=== PATIENT | female | born 1995 | race Caucasian/White ===

== ENCOUNTER 2018-03-18 19:23 | Emergency (ER) | payer OTHER ==
--- NOTE | 2018-03-18 19:47 | EDPHY ---
H & P Source: Patient Exam Limitations: No limitations - Personal History Current Tetanus/Diphtheria Vaccine: Yes Current Tetanus Diphtheria and Acellular Pertussis (TDAP): Yes Time Seen by Provider: 03/18/18 19:47 HPI/ROS: HPI: This is a 22-year-old female who presents with Chief Complaint: Left thumb nail avulsion Location: Left thumb Quality: Nail avulsion Duration: Prior to arrival Signs and Symptoms: + bleeding, no radiation, no numbness, no weakness, no tingling, no incontinence, no decreased range of motion, no swelling, + pain, no fever Timing: Acute Severity: Moderate 5/10 Context: Patient is of [facility] employee presents from the OR with accidentally cutting part of her nail of her left thumb on a scalpel prior to arrival. She reports that she felt immediate pain that was constant and nonradiating in nature. Patient was gloved at the time and noted that she was bleeding. She removed her glove and noted that there was a moderate amount of bleeding that she could not stop with direct pressure. Reports tetanus up-to- date. Denies any paresthesias/weakness/decreased range of motion. Modifying Factors: Comment: ROS: see HPI Constitutional: No fever, no chills, no weight loss Eyes: No blurred vision Respiratory: No shortness of breath, no cough Cardiovascular: No chest pain Gastrointestinal: No nausea, no vomiting no diarrhea Genitourinary: No dysuria Extremities: No myalgias Neurologic: No weakness, no numbness Skin: No rashes Hematologic: No bruising, no bleeding MEDICAL/SURGICAL/SOCIAL HISTORY: Medical history: Generally healthy. Does not take any regular medications. Surgical history: Denies Social history: Employed. CONSTITUTIONAL: awake and alert, no obvious distress HEENT: Atraumatic and normocephalic. EXTREMITIES: 2/2 pulses, strength 5/5, left thumb shows 1/4 partial nail avulsion of the lateral portion; + active bleeding of nail bed. DIP/PIP/MCP flexion/extension intact with good light touch sensation. no deformities, no clubbing, no cyanosis or edema. NEUROLOGICAL: no focal neuro deficits. GCS 15. Light touch sensation intact. SKIN: Warm and dry, no erythema. no rash. Good capillary refill. (SesarTerra) Constitutional: Initial Vital Signs Heart Rate 71 03/18/18 20:29 Blood Pressure 113/84 H 03/18/18 20:29 O2 Sat (%) 98 03/18/18 20:29 O2 Delivery Mode Room Air Medical Decision Making ED Course/Re-evaluation: Vital signs reviewed and stable upon arrival. Tetanus up-to-date no indication for xray imaging. tourniquet placed on finger, digital block using lidocaine without epinephrine performed for pain control, silver nitrate stick x1 used to achieve hemostasis, Xeroform placed into nail fold and clean sterile dressing applied. Verbal and written wound care instructions provided. No signs of neurovascular compromise/tenting of skin/compartment syndrome/ extremities and joints examined above and below area of concern and are neurovascularly intact/open fracture/nail bed laceration. This patient was seen under the supervision of my secondary supervising physician. I evaluated care for this patient independently. (Nithya Kaba) Differential Diagnosis: Differential diagnosis includes but is not limited to nail avulsion, finger fracture, nail matrix injury, partial amputation. (Nithya Kaba) Other Provider: PHYSICIAN DOCUMENTATION: The patient was evaluated and managed by the Physician Custodial Foreman. My co- signature indicates that I have reviewed this chart and I agree with the findings and plan of care as documented. I am the secondary supervising physician. (Terence Garcia) - Data Points Medications Given: Discontinued Medications Ibuprofen (Motrin) 600 mg PO EDNOW ONE Stop: 03/18/18 19:59 Last Admin: 03/18/18 20:03 Dose: 600 mg Silver Nitrate/Potassium Nitrate (Silver Nitrate Applicator) 1 each TP EDNOW ONE Stop: 03/18/18 19:59 Last Admin: 03/18/18 20:03 Dose: 1 each Departure - Departure Disposition: Home, Routine, Self-Care Clinical Impression: Nail avulsion, finger Qualifiers: Encounter type: initial encounter Qualified Code(s): S61.309A - Unspecified open wound of unspecified finger with damage to nail, initial encounter Injury of nail bed of finger of left hand Qualifiers: Encounter type: initial encounter Qualified Code(s): S69.92XA - Unspecified injury of left wrist, hand and finger(s), initial encounter Condition: Good Instructions: Nail Avulsion (ED) Additional Instructions: Keep the dressing dry and in place for 48 hours. After 48 hours, you may remove the dressing; wash the site daily with mild soap and water; then pat dry; apply Xeroform into nail fold; and then cover with clean sterile dressing. Take Tylenol 650 mg every 4 hours and/or Ibuprofen 600 mg every 8 hours with food as needed for pain. Apply ice for 30 minutes at a time; 2-3 times per day for the next 1-2 days. Follow up with primary care provider in 5-7 days for wound check. Return to the ER immediately if you experience new or worsening pain, discoloration, numbness, tingling, or any other symptoms that concern you. Referrals: PCP Not In,Dictionary [Medical Doctor] - 5-7 days, call for appt. Stand Alone Forms: Work Excuse
[2018-03-18] MEDS ORDERED: SILVER NITRATE APPLICATOR 1 APPL TP ONE ×2 (19:51→19:58)
[2018-03-18] MEDS ORDERED: IBUPROFEN 600 MG TAB PO ONE (19:58)
[2018-03-18 20:30] VITALS: BP 113/84
== END 2018-03-18 20:29 | disposition home or self-care (01) ==
DX: S61.102A Unspecified open wound of left thumb with damage to nail, initial encounter (principal); W45.8XXA Other foreign body or object entering through skin, initial encounter

== ENCOUNTER 2018-03-21 14:49 | Emergency (ER) | payer OTHER ==
--- NOTE | 2018-03-21 15:25 | EDPHY ---
H & P Time Seen by Provider: 03/21/18 14:58 HPI/ROS: HPI HPI Wound check for left thumb injury. 22-year-old female by private vehicle with boyfriend. 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 She is right-hand dominant. She presents to the emergency department asking for stronger pain medication and wanting the wound evaluated. She denies any new injury. She has not had a fever. No other complaints. ROS: Constitutional: No fever, no chills. No weakness. Musculoskeletal: As above. Skin: No rashes. Neurological: No focal weakness or altered sensation. Past medical history: She denies any significant past medical history. Social history: Nonsmoker. Works at the hospital. Here with a friend. Physical Exam: General Appearance: Alert, no distress. This patient is responding to questions appropriately and in full sentences. This patient appears well- hydrated and well-nourished. Left thumb: Significant for a well-healing avulsion injury involving the distal 50% of the nail and nail bed. This area has been cauterized. There is a blackish dry eschar that has formed over the cautery area. There is no significant swelling. No surrounding erythema or edema. No purulent drainage or every other evidence of infection. The left thumb is neurovascularly intact. The left upper extremity is without erythematous streaking. Neurological: Motor sensory function is grossly intact. Cranial nerves are normal. Gait is normal. Skin: Warm and dry, no rashes. As above. Extremities are symmetrical except. All joints range without pain or impingement. Psychiatric: No agitation. No depression. Database: EKG: Imaging: Procedures: Emergency department course: I reviewed her wound care note from her visit on March 18. Vital signs reviewed and are normal. She is afebrile. Her wound is healing well and shows no signs of infection. I will prescribe her some Vicodin for a stronger pain medication. I discussed wound dressing and care. I think she can start scrubbing her hands for work in another 5 days. Return to emergency department precautions were reviewed with her. All of her questions were answered. She was discharged from the emergency department in good condition. Differential Diagnosis: The differential diagnosis on this patient includes but is not limited to wound check for left thumbnail avulsion injury. Significant neurovascular injury, wound infection, retained foreign body unlikely. This represents a partial list of diagnoses considered. These considerations are based on history, physical exam, past history, reassessment and diagnostic testing. Smoking Status: Current every day smoker Constitutional: Initial Vital Signs Temperature (C) 36.6 C 03/21/18 14:58 Heart Rate 76 03/21/18 14:58 Respiratory Rate 17 03/21/18 14:58 Blood Pressure 143/81 H 03/21/18 14:58 O2 Sat (%) 98 03/21/18 14:58 O2 Delivery Mode Room Air Allergies/Adverse Reactions: No Known Allergies Allergy (Unverified 03/21/18 14:58) Home Medications: Medication Instructions Recorded Hydrocodone/APAP 5/325 [[place] 1 - 2 tab PO Q4-6PRN PRN #10 tab 03/21/18 5/325 (*)] Ibuprofen 03/21/18 Departure - Departure Disposition: Home, Routine, Self-Care Clinical Impression: Visit for wound check, Left thumb nail avulsion injury Condition: Good Instructions: Nail Avulsion (ED) Additional Instructions: Read and follow provided instructions. A clean Band-Aid dressing should be sufficient. You can change this twice daily. Keep the wound area dry and clean. You can start scrubbing you're hands for work related functions vigorously in 5 days. Follow-up with your primary care physician in 2-3 days for re-evaluation. Ibuprofen dosin mg every 6 hours with meals for the next 3 days only. Take only as needed for pain. [place] 5-325: 1-2 every 4-6 hours as needed for pain. Do not drive on this medication. Return to the emergency department for worsening symptoms or other serious concerns. Referrals: DANIEL LANZA DO [Other] - As per Instructions Prescriptions: Hydrocodone/APAP 5/325 [[place] 5/325 (*)] 1 - 2 tab PO Q4-6PRN PRN #10 tab PRN Reason: Pain, Moderate
[2018-03-21 15:46] VITALS: BP 138/78
== END 2018-03-21 15:44 | disposition home or self-care (01) ==
DX: S61.102D Unspecified open wound of left thumb with damage to nail, subsequent encounter (principal); F17.200 Nicotine dependence, unspecified, uncomplicated; X58.XXXD Exposure to other specified factors, subsequent encounter

== ENCOUNTER 2018-03-26 20:21 | Emergency (ER) | payer OTHER ==
[2018-03-26] MEDS ORDERED: CLINDAMYCIN 150MG PREPACK#6 BTL TAKEHOME ONE (21:12)
--- NOTE | 2018-03-26 21:15 | EDPHY ---
H & P Time Seen by Provider: 03/26/18 20:27 HPI/ROS: 22-year-old female presents complaining of concern about possible MRSA exposure when she cut her finger at work approximately 6 days ago. Patient was seen for a distal finger tip avulsion. Today she went to [facility] and was started on cephalexin she arrives tonight concerned that she may have had a MRSA exposure. Patient complains of pain at her distal finger tip as well as a small amount of discharge. No fevers or chills. Review of systems As per HPI General no fever no chills no weakness HEENT no eye pain no eye discharge. No eye redness, no sore throat Respiratory no cough, no shortness of breath Cardiac no chest pain, no peripheral edema GI no abdominal pain, no diarrhea, no constipation, no nausea, no vomiting no flank pain, no hematuria, no dysuria Musculoskeletal no myalgias, no joint pain Heme no easy bruising, no easy bleeding Endo no polyuria, no polydipsia Skin no rashes, no pruritus Neuro no syncope, no dizziness, no headaches Psych is no suicidal ideation, no homicidal ideation Past Medical/Surgical History: Non contributory Social History: Denies alcohol or drug use Smoking Status: Current every day smoker Physical Exam: Alert and oriented in no acute distress nontoxic appearance, afebrile Atraumatic normocephalic Neck no JVD Lungs clear to auscultation, no respiratory distress Heart regular rate and rhythm Extremities no cyanosis clubbing edema Left thumb-evidence of prior distal finger tip avulsion at the volar surface involving a very small amount of the nail. No erythema, no swelling, no obvious drainage Tenderness to palpation, nonfluctuant Constitutional: Initial Vital Signs Temperature (C) 36.7 C 03/26/18 20:37 Heart Rate 89 03/26/18 20:37 Respiratory Rate 16 03/26/18 20:37 Blood Pressure 130/77 H 03/26/18 20:37 O2 Sat (%) 95 03/26/18 20:37 O2 Delivery Mode Room Air Allergies/Adverse Reactions: No Known Allergies Allergy (Unverified 03/21/18 14:58) Home Medications: Medication Instructions Recorded Clindamycin HCl [Clindamycin] 300 mg PO TID 7 Days #21 cap 03/26/18 Medical Decision Making ED Course/Re-evaluation: Patient seen and evaluated for possible MRSA exposure, and wound check from injury at work earlier this week. Impression/plan No obvious infection noted on physical exam, however patient with possible MRSA exposure MRSA culture attempted and sent Patient given ibuprofen 800 mg p.o. Patient's antibiotic change to clindamycin with likely better MRSA coverage then cephalexin which was started earlier today. Differential Diagnosis: Differential diagnosis considered but not limited to: Wound infection, normal healing wound, MRSA exposure, MRSA - Data Points Medications Given: Discontinued Medications Clindamycin (Cleocin 150 Mg Prepack#6) 1 btl TAKEHOME EDNOW ONE PRN Reason: Protocol Stop: 03/26/18 21:13 Last Admin: 03/26/18 21:28 Dose: 1 btl Ibuprofen (Motrin) 800 mg PO EDNOW ONE Stop: 03/26/18 21:18 Last Admin: 03/26/18 21:27 Dose: 800 mg Departure - Departure Disposition: Home, Routine, Self-Care Clinical Impression: Exposure to MRSA, Fingertip avulsion Condition: Good Instructions: Clindamycin (By mouth), Wound Infection (ED), Skin Avulsion (ED) Referrals: MD CASEY [Other] - As per Instructions Prescriptions: Clindamycin HCl [Clindamycin] 300 mg PO TID 7 Days #21 cap
[2018-03-26] MEDS ORDERED: IBUPROFEN 800 MG TAB PO ONE (21:17)
[2018-03-26 21:56] VITALS: BP 123/77
== END 2018-03-26 21:36 | disposition home or self-care (01) ==
LOC: CED 20:21
DX: Z20.818 Contact with and (suspected) exposure to other bacterial communicable diseases (principal); S61.002D Unspecified open wound of left thumb without damage to nail, subsequent encounter; F17.200 Nicotine dependence, unspecified, uncomplicated; W45.8XXD Other foreign body or object entering through skin, subsequent encounter

== ENCOUNTER → 2018-03-26 | Outpatient (CLI) | payer OTHER | LOC: CIMAGING 11:00 | PROVIDERS: ATTEND Physical Medicine & Rehabilitation | DX: Z03.89 Encounter for observation for other suspected diseases and conditions ruled out (principal) | CPT/HCPCS: 73140-PO ==